=== PATIENT | female | born 1960 | race African-American/Black ===

== ENCOUNTER → 2022-02-19 | Outpatient (CLI) | payer BC, SELFPAY ==
--- NOTE | 2022-02-19 17:13 | RAD_ITS ---
STUDY: X-RAY - CERVICAL SPINE REASON FOR EXAM: Female, 61 years old. NECK PAIN TECHNIQUE: 6 view(s) of the cervical spine were obtained. COMPARISON: None FINDINGS: Normal anterior atlantoaxial articulation. Normal odontoid process. There is reversal of the normal cervical lordosis. There is multi-level endplate spondylosis. There is multi-level degenerative disc disease with multilevel disc space narrowing. There is multi-level osseous foraminal stenosis. The soft tissue structures are unremarkable. There is suboccipital fusion hardware in place. RAD/Cerv Spine 4 or 5 Views IMPRESSION: Degenerative changes without acute findings. Reversal of the normal cervical lordosis Electronically Signed: Rajiv Rebollar DO at 2:57 EDT ,
== END | disposition home or self-care (01) ==
LOC: RAD 16:56
PROVIDERS: Referring Provider Anesthesiology Pain Medicine; Visit Provider Anesthesiology Pain Medicine
DX: M54.2 Cervicalgia (principal)
CPT/HCPCS: 72050

== ENCOUNTER 2023-02-02 10:57 | Outpatient (RCR) | payer BC, SELFPAY ==
--- NOTE | 2023-02-06 07:19 | HP.OTFCE.D ---
FCE D/C Summary Discharge text: ANAND ROSS was seen for a one time visit for an FCE on 02/02/23 and is discharged.
--- NOTE | 2023-02-06 11:20 | HP.FCE ---
Task Lift Floor (Occasional 1-33% of Day): 5# Floor (Frequent 34-66% of Day): NA Floor (Constant 67-100% of Day): NA Floor PDL: Sedentary Knee (Occasional 1-33% of Day): 5# Knee (Frequent 34-66% of Day): NA Knee (Constant 67-100% of Day): NA Knee PDL: Sedentary Waist (Occasional 1-33% of Day): 3# Waist (Frequent 34-66% of Day): NA Waist (Constant 67-100% of Day): NA Waist PDL: Sedentary Shoulder (Occasional 1-33% of Day): NA Shoulder (Frequent 34-66% of Day): NA Shoulder (Constant 67-100% of Day): NA Shoulder PDL: No Ability Overhead (Occasional 1-33% of Day): NA Overhead (Frequent 34-66% of Day): NA Overhead (Constant 67-100% of Day): NA Overhead PDL: No Ability Comments: pt is at Physical Demand level at Sedentary for lifting at floor-knee and waist levels. Work Activity/Posture Bending: Occasional Ability (1-33% of day) Comments: low occasional ability with external support Squatting: No Ablility (0% of day) Kneeling: No Ablility (0% of day) Reaching out: Occasional Ability (1-33% of day) Comments: low occasional ability done while sitting Reaching up: Occasional Ability (1-33% of day) Comments: low occasional ability done while sitting Sitting: Frequent Ability (34-66% of day) Comments: with shifting body guadalupe Walking: Occasional Ability (1-33% of day) Comments: with use of assistive device Standing: Occasional Ability (1-33% of day) Comments: with shifting body weight Reference Reference: Duration Sedentary Sedentary Light Light Light Medium Medium Medium Heavy Very Heavy Heavy Occasional (0-33% of day) Frequent (34-66% of day) Constant (67-100% of day) 10 # Negligible Negligible 15 # 8 # Negligible 20 # 10# Negli. 35 # 18 # 7 # 50 # 25 # 10 # 75 # 100 # >100 # 38 # 50 # >50 # 15 # 20 # >20 # Patient Information Height: 35.05 m Weight:: 2.098 kg Hand Dominance: left Medical History Medical History Including Restrictions: Pt states she suffered from migraines since she was young. Pt states she would get Botox to assist with her migraines. pt states she felt the Botox was helpful in frequency of headaches. Pt states she in 2014 took a fall down the stairs and suffered C1-C2 fx. pt states she was in neck brace for three years. pt underwent sx in 2016 with fusion of C1- C2. pt states her neurologist took care of her pain until 2017 went to pain mtg. Cassy graham - pt was seen from him until 2021. pt states she had to stop seeing him because of the office move. Pt states she had to change Dr. Collier was the only DrGriselda that would see her. pt states she has been seeing Dr. Collier for about a year. pts states she continued to have pain- and would try to get her left arm in position that was not painful- pt states she has had about 6 or more injections ( states the last few injections have not been successful) pt states she was to see surgeon- who worked on her neck. pt states this surgeon rec/d sx 2021. pt states she has been doing the facet injections but not successful. pt has pain pump placed 2018. pt states she did go to physical therapy to assist in mtg. her symptoms but was not helpful. Diagnoses Diagnoses: Back pain neck pain right TKR migraines HTN Symptoms Symptoms: Right knee pain Back pain Neck pain headache Pain Pain: Pt states her pain increases as the day goes on. 8/10 with medication ( pain pump and medication) pt states she had pain pump place in 2019 ? 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 pt states she worked for this company in 1988 untill 2011. pt states the last time she worked was 2011 was laid off from this company- pt states she was on unemployment for a year and a half. pt states she did not work from 2011 until he accident in 2014 and has not been able due to her cervical fx. pt states company closed in 2015. Behavioral Behavioral: pt emotional throughout assessment. pt reported frustration with her limited ability,. ADLS ADLS: Pt lives with in two story home with 5 entry steps with one handrail. pt states her master bedroom and bathroom are on second floor. pt has 10 with lading and 5 more steps with one handrail. pt has tub shower combination- pt has shower chair (states she does not use this daily) pt does have assistance from to get in and out of shower. pt states she can mtg her ADLS on a BIANKA level. pt states her does all cooking, cleaning and laundry (first floor) pt states her is retired and does all yard work and shopping- pt does not drive. Physical Examination Physical Examination: heart rate 75 prior to start of assessment- heart rate max was 79 ROM: pt demo with guarded neck and shoulder movement patterns pt can reach functional ROM but takes more time. Pts ROM did improve throughout assessment when performing functional task. Strength: fet2 peak force testing in # (lbs) shoulder flexion right 2# left 3# shoulder extension right 8# left 7# biceps right 8.6# left 6.7# triceps right 6.7 left 6.1# hip flexion right 17.8# left 17.8# quadriceps right 14# left 10# hamstrings right 12# left 11# Right Wall To Wall Carpet Installer Strength Average: 41.66 Right Wall To Wall Carpet Installer Strength Percentile: 12% Left Wall To Wall Carpet Installer Strength Average: 36.66 Left Wall To Wall Carpet Installer Strength Percentile: 10% Right Lateral Pinch Average: 6.00 Right Lateral Pinch Percentile: <10% Left Lateral Pinch Average: 4.00 Left Lateral Pinch Percentile: <10% Right Tripod Pinch Average: 6.00 Right Tripod Pinch Percentile: <10% Left Tripod Pinch Average: 4.00 Left Tripod Pinch Percentile: <10% Comments: pt demo with below average pinch strength for her age Sensation: [place]-Blake Monofilaments Sensory Testing right thumb 3.22 interpretation Diminished light touch right IF, MF, RF, LF 2.83 interpretation Normal sensation left 2.83 all digits interpretation Normal sensation Fine Motor: right 9 hole peg left 38.6 sec. = 0% right 32.06 sec. = 0% pt demo a decrease in FMS for her age. Balance: pt demo no loss of balance throughout assessment Non Material Handling Activities Bending: pt demo the ability to bend forward 3/3x with increase time to complete pt states dizzy and pain 9/10 pt can bend forward with external support on low occasional ability Squatting: unable Kneeling: unable Reaching out/up: pt demo the ability to reach out 3/3x pt reported neck pain at 9/10 following pt reported she was unable to perform any further movement. pt can reach out on low occasional ability. pt demo limited shoulder flexion reach 3/3x in limited plane of motion. (100* shoulder flexion) pt report pain 9/10 pt unable to continue with further movement. pt can reach up on low occasional ability (within her limited ROM) Walking: pt ambulates with straight cane with slow reciprocal step pattern. pt ambulated 620 feet total during assessment. pt demo carry of straight cane at times or not use of cane for short 4 feet distance. pt can ambulate on occasional ability to use of assistive device. Standing: pt demo the ability to stand for 6 min at times throughout assessment with shifting body weight. pt can stand on occasional ability. Sitting: pt demo the ability to sit for 60 min with expressed or apparent discomfort- shifting weight and rocking in chair. pt can sit on frequent ability with shifting body weight as needed. Climbing Stairs: pt demo the ability to ascend and descend 7 steps with a reciprocal step pattern and use of handrail. pt took her time and demo good safety judgment on stairs. ( pt did indicate to therapist her home stairs due to seep steps (old home) she crawls up. Dynamic Occasional Lifting Capacity Floor Lift: pt attempted floor lift of 5# but only lifted 3 with pain in neck. pt used fair lifting mechanics. pt Physical demand level sedentary Knee Lift: pt lifted 5# maximally from knee level lift with fair lifting mechanics. pt Physical demand level sedentary Waist Lift: pt demo the ability to lift 3# maximally from waist level with fair lifting mechanics. pt Physical demand level sedentary Shoulder Lift: unable Overhead Lift: unable Carrying: pt states she does not carry - unable to carry Comments: pt limited by pain with functional mobility and strength . reported pain 9/10 with pain pump and medication. heart rate ranged from 75-79
== END 2023-02-02 19:00 | disposition home or self-care (01) ==
LOC: OT 10:57
PROVIDERS: Referring Provider Anesthesiology Pain Medicine; Visit Provider Anesthesiology Pain Medicine
DX: M54.9 Dorsalgia, unspecified (principal); M54.2 Cervicalgia
CPT/HCPCS: 97750

== ENCOUNTER → 2024-11-01 | Outpatient (CLI) | payer OTHER, SELFPAY ==
[2024-11-01 20:18] LABS: Amphetamine Urine NEGATIVE (<1000 ng/mL); Barbiturate Urine NEGATIVE (< 200 ng/mL); Benzodiazepine Urine NEGATIVE (< 200 ng/mL); Buprenorphine Urine NEGATIVE (< 200 ng/mL); Cocaine Urine NEGATIVE (< 300 ng/mL); Fentanyl, Urine NEGATIVE; Methadone Urine NEGATIVE (< 300 ng/mL); Opiates Urine NEGATIVE (< 300 ng/mL); Oxycodone, Urine NEGATIVE (< 100 ng/mL); PCP Urine NEGATIVE (< 25 ng/mL); THC Urine PRESUMPTIVE POSITIVE (< 50 ng/mL)
== END | disposition home or self-care (01) ==
PROVIDERS: Referring Provider Anesthesiology Pain Medicine; Visit Provider Anesthesiology Pain Medicine
DX: F11.20 Opioid dependence, uncomplicated (principal)
CPT/HCPCS: 80307